=== PATIENT | female | born 1950 | race Caucasian/White ===

== ENCOUNTER 2020-07-02 22:26 | Emergency (ER) | payer MEDICARE, MEDICAID, SELFPAY ==
--- NOTE | ~2020-07-02 | XR_ITS ---
EXAMINATION: XR chest 2V EXAM DATE: 07/02/2020 23:01 INDICATION: Mid chest pain, pressure, palpitations. History of hypertension. TECHNIQUE: Frontal and lateral projections of the chest obtained and reviewed. Comparison is made to prior examination from 06/29/2019. FINDINGS: The lungs are clear. There are no pleural effusions. The cardiomediastinal silhouette is within normal limits. There is no pneumothorax suspected. The bones and soft tissues are unremarkab le. There are cholecystectomy clips. IMPRESSION: No acute cardiopulmonary findings. Reviewed, dictated and finalized at location G. [facility]
[2020-07-02 22:23] VITALS: PULSE 96; RESP 22; TEMP 36.8; O2SAT 97
--- NOTE | 2020-07-02 22:31 | ECG_ITS ---
Measurements Intervals [place] Rate: 91 P: 35 [place]: 144 QRS: 8 QRSD: 104 T: 52 QT: 369 QTc: 456 Interpretive Statements SINUS RHYTHM CONSIDER INFERIOR INFARCT, AGE INDETERMINATE BASELINE ARTIFACT- I, II, AVR, AVF, V1 ABNORMAL ECG Electronically Signed On 07-03-2020 7:03:36 HR CLERK by Rishabh Anthony D.O.
[2020-07-02 22:43] VITALS: PULSE 93
[2020-07-02 22:51] LABS: Basophils Absolute Auto 0.1 K/mm3 (0.0-0.1); Basophils Percent Auto 0.6 % (0.2-1.2); Eosinophils Absolute Auto 0.1 K/mm3 (0-0.3); Eosinophils Percent Auto 1.1 % (0-4.4); Hematocrit 43.2 % (37.0-47.0); Hemoglobin 14.8 g/dL (12.0-15.0); Immature Granulocyte Absolute 0.02 K/mm3 (0.00-0.031); Immature Granulocyte Percent A 0.2 % (0-0.5); Lymphocytes Absolute Auto 2.97 K/mm3 (0.9-3.2); Lymphocytes Percent Auto 35.2 % (18.3-44.2); Mean Corpuscular HGB Conc 34.3 g/dl (32-36); Mean Corpuscular Hemoglobin 29.9 pg (26-34); Mean Corpuscular Volume 87.3 fl (80-100); Mean Platelet Volume 9.4 fl (7.4-10.4); Monocytes Absolute Auto 0.6 K/mm3 (0.1-0.6); Monocytes Percent Auto 7.6 % (2.6-8.5); Neutrophils Absolute Auto 4.7 K/mm3 (1.3-6.7); Neutrophils Percent Auto 55.3 % (45.5-73.1); Platelet Count Result 257 k/mm3 (150-375); Red Blood Count 4.95 M/mm3 (4.2-5.4); White Blood Count 8.4 K/mm3 (4.5-10.0)
--- NOTE | 2020-07-02 23:01 | ED.GENADULT ---
HPI - General Adult General Chief complaint: Chest Pain Stated complaint: ANXIETY/CHEST PRESSURE History of Present Illness HPI narrative: Patient is a 69-year-old female who presents the ER with concerns of elevated blood pressure and potentially chest pain that began this evening. Reports that a insurance person came out today and took her blood pressure and told her it was elevated. She is unsure what the value was. A friend then came down and checked her blood pressure this evening and told her that the blood pressure was elevated and that she should come to the emergency room. At this time patient started to develop some central chest discomfort that she reports feels like a cat is in her chest. She cannot elaborate what that means. It lasted a couple minutes. No radiation. She is having no fevers or chills or sweats. No productive cough. She had not had any additional chest pain during the day or the last couple of weeks. No history of heart disease. Patient did report that she felt some fluttering sensation in the lateral aspect of her chest wall earlier in the day that was separate from what she experienced while having her blood pressure taken this evening. Patient does have history of anxiety and reports this is different. Related Data Home Medications Medication Instructions Recorded Confirmed amitriptyline 75 mg PO HS 06/29/19 06/29/19 aspirin [Aspir-Low] 06/29/19 clonazepam 1 mg PO DAILY 06/29/19 06/29/19 esomeprazole magnesium 20 mg PO DAILY 06/29/19 06/29/19 gabapentin 100 mg PO DAILY 06/29/19 06/29/19 Allergies Allergy/AdvReac Type Severity Reaction Status Date / Time ampicillin Allergy Unknown Verified 09/24/18 11:27 codeine Allergy Unknown Verified 07/05/17 07:07 Review of Systems Review of Systems: All systems reviewed & are unremarkable except as noted in HPI and below Constitutional: Constitutional: Denies chills, Denies fever(s) and Denies weakness ENT: Denies nasal congestion and Denies sore throat Cardiovascular: Cardiovascular: Reports chest pain, Denies rapid heart rate and Denies radiating jaw, neck or arm pain Respiratory: Respiratory: Denies cough, Denies dyspnea and Denies wheezing Gastrointestinal: Gastrointestinal: Denies abdominal pain, Denies nausea and Denies vomiting Musculoskeletal: Musculoskeletal: Denies back pain and Denies muscle cramps [facility] Past Medical History Medical History (Updated 07/03/20 @ 02:18 by Josue Hernandez MD) Anxiety GERD (gastroesophageal reflux disease) Hypertension Surgical History Surgical History (Updated 06/29/19 @ 13:02 by Magali Arboleda) H/O: hysterectomy History of cholecystectomy Social History Social History (Updated 06/29/19 @ 13:02 by Magali Arboleda) Smoking status: Former smoker Alcohol intake: never Substance use type: marijuana Gender identity (if verbalized by the patient): Female Exam Narrative: Exam Narrative: GENERAL: Well-appearing, well-nourished, and in no acute distress. HEAD: Normocephalic, atraumatic. CHEST: Clear to auscultation. No respiratory distress. HEART: Regular rate and rhythm. Normal peripheral pulses. ABDOMEN: Soft, nontender, nondistended. EXTREMITIES: Normal range of motion. No edema. SKIN: Warm, dry, no rash. NEURO: Alert and oriented x3. PSYCH: Normal mood and affect. Course Course Emergency Course: No pain, trop negative x 2, d/c. BP normalized. Vital Signs Vital signs: Vital Signs Temperature 98.3 F 07/02/20 22:23 Pulse Rate 96 07/02/20 22:23 Respiratory Rate 22 H 07/02/20 22:23 Pulse Oximetry 97 07/02/20 22:23 Temperature 98.3 F 07/02/20 22:23 Pulse Rate 95 07/03/20 00:36 Respiratory Rate 20 07/03/20 00:36 Blood Pressure 128/95 H 07/03/20 00:36 Pulse Oximetry 97 07/03/20 00:36 Medical Decision Making Vital Signs Vital Signs: Vital Signs Temperature 98.3 F 07/02/20 22:23 Pulse Rate 96 07/02/20 22:23 Respirato
[2020-07-02 23:03] LABS: Anion Gap 8 mmol/L (8-16); Blood Urea Nitrogen 22 mg/dL (7-17); Calcium 9.3 mg/dL (8.4-10.2); Carbon Dioxide 28 mmol/L (22-30); Chloride 103 mmol/L (98-107); Estimated Glomerular Filt Rate 49; Glucose 129 mg/dL (65-105); Potassium 3.9 mmol/L (3.4-5.0); Sodium 139 mmol/L (137-145)
[2020-07-02 23:05] LABS: INR 0.9; Prothrombin Time 12.6 Seconds (11.1-14.7)
[2020-07-02 23:06] LABS: Partial Thromboplastin Time 26.4 SECONDS (22.3-36.8)
[2020-07-02 23:10] VITALS: BP 139/85; PULSE 93; RESP 17; O2SAT 98
[2020-07-02 23:15] LABS: Troponin I < 0.012 ng/mL (0.000-0.034)
[2020-07-03 00:36] VITALS: BP 128/95; PULSE 95; RESP 20; O2SAT 97
[2020-07-03 02:00] LABS: Troponin I < 0.012 ng/mL (0.000-0.034)
[2020-07-03 02:40] VITALS: BP 130/79; PULSE 81; RESP 18; O2SAT 99
== END 2020-07-03 02:40 | disposition home or self-care (01) ==
PROVIDERS: Emergency Provider Emergency Medicine; PCP Family Medicine
DX: F41.9 Anxiety disorder, unspecified (principal); Z87.891 Personal history of nicotine dependence; K21.9 Gastro-esophageal reflux disease without esophagitis; I10 Essential (primary) hypertension
CPT/HCPCS: 36415; 71046; 80048; 84484; 85025; 85610; 85730; 93005; 99284

== ENCOUNTER 2021-03-11 00:49 | Day surgery (SDC) | payer MEDICARE, MEDICAID, SELFPAY ==
[2021-02-25 12:08] VITALS: BMI 28.7
--- NOTE | 2021-03-11 08:26 | WPDANESEPPF ---
Anes - Initial Pre Proc Eval Procedure: Operation Date: 03/11/21 10:00 Proposed Procedures p Screening Colonoscopy - Arnie Laureano MD Date/Time: 03/11/21 08:26 Surgeon: Arnie Laureano MD Pre Op Diagnosis: neoplasm screening Patient Data Age: 70 Gender: F Height: 1.6 m Weight: 73.5 kg Allergies Allergy/AdvReac Type Severity Reaction Status Date / Time ampicillin Allergy Unknown Nausea and Verified 03/11/21 08:48 Vomiting codeine Allergy Unknown Other Verified 03/11/21 08:48 Home Medications Medication Instructions Recorded Confirmed Type amitriptyline 75 mg PO HS 06/29/19 02/25/21 History clonazepam 1 mg PO DAILY 06/29/19 02/25/21 History esomeprazole magnesium 20 mg PO DAILY 06/29/19 02/25/21 History gabapentin 100 mg PO DAILY 06/29/19 02/25/21 History aspirin 81 mg PO DAILY 02/25/21 02/25/21 History naproxen 500 mg PO PRN 02/25/21 02/25/21 History Patient hx anesthesia problems: none Family hx anesthesia problems: none [facility] Past Medical History Medical History (Updated 03/11/21 @ 08:26 by Carrillo Daugherty MD) Anxiety GERD (gastroesophageal reflux disease) Hypertension Peripheral neuropathy Surgical History Surgical History (Updated 06/29/19 @ 13:02 by Magali Arboleda) H/O: hysterectomy History of cholecystectomy Social History Social History (Updated 06/29/19 @ 13:02 by Magali Arboleda) Smoking packs per day: 1 Smoking cigarettes per day: 20.0 Smoking status: Former smoker Tobacco type: cigarettes Alcohol intake: current Alcohol use details: rare use now; states, she used to be a drinker Substance use: current Substance use type: marijuana Other substance usage details: 2-3 times weekly at bedtime Last use: 02/24/2021 Living arrangements: alone Additional living arrangements comments: lives in shelter community Gender identity (if verbalized by the patient): Female Spiritual care concerns: No Anes - Eval Final PreProcedure Day of Procedure 03/11/21 08:26 Patient weight: overweight Heart: regular rate and rhythm Lungs: clear to auscultation and normal air movement Airway: Mallampati scale class II Neurological: alert and oriented Last oral intake: >/= 8 hours ASA classification: II Emergent: no Anesthetic plan: proceed Anesthesia type and monitoring: general GIVS Informed Consent: The patient's anesthetic plan and its attendant risks and benefits were discussed with the patient/family/POA. Questions were solicited and answers provided to the satisfaction of the patient/family/POA.
[2021-03-11 08:49] VITALS: BP 146/93; PULSE 94; RESP 18; TEMP 36.4; O2SAT 98; BMI 28.0
[2021-03-11] MEDS: LACTATED RINGERS 1,000 ML 150 ML IV CONT (08:56)
--- NOTE | 2021-03-11 09:32 | P.HP_ITS ---
History of Present Illness History of Present Illness Consent: Risks, benefits, and alternatives have been discussed and questions answered. Patient agrees to proceed with procedure. Chief complaint: neoplasm screening Narrative: Margareth Saldivar is a 70 year old female referred for colon cancer screening. Review of Systems Review of Systems: All systems reviewed & are unremarkable except as noted in HPI and below PMFSH Past Medical History Medical History Anxiety GERD (gastroesophageal reflux disease) Hypertension Peripheral neuropathy Surgical History Surgical History H/O: hysterectomy History of cholecystectomy Social History Social History Smoking packs per day: 1 Smoking cigarettes per day: 20.0 Smoking status: Former smoker Tobacco type: cigarettes Alcohol intake: current Alcohol use details: rare use now; states, she used to be a drinker Substance use: current Substance use type: marijuana Other substance usage details: 2-3 times weekly at bedtime Last use: 02/24/2021 Living arrangements: alone Additional living arrangements comments: lives in nursing home community Gender identity (if verbalized by the patient): Female Spiritual care concerns: No Meds Home Medications and Allergies Home Medications Medication Instructions Recorded Confirmed Type amitriptyline 75 mg PO HS 06/29/19 02/25/21 History clonazepam 1 mg PO DAILY 06/29/19 02/25/21 History esomeprazole magnesium 20 mg PO DAILY 06/29/19 02/25/21 History gabapentin 100 mg PO DAILY 06/29/19 02/25/21 History aspirin 81 mg PO DAILY 02/25/21 02/25/21 History naproxen 500 mg PO PRN 02/25/21 02/25/21 History Allergies Allergy/AdvReac Type Severity Reaction Status Date / Time ampicillin Allergy Unknown Nausea and Verified 03/11/21 08:48 Vomiting codeine Allergy Unknown Other Verified 03/11/21 08:48 Vital Signs Vital Signs - 24 hr 03/11/21 08:49 Temperature 36.4 C L Pulse Rate 94 Respiratory Rate 18 Blood Pressure 146/93 H Pulse Oximetry 98 Exam Resp: Auscultation: clear to auscultation bilaterally Cardio: Rate: regular rate Rhythm: regular rhythm GI: GI Palp: Yes Soft to palpation and No Tenderness to palpation present (GI) Assessment and Plan Assessment and plan (1) Colon cancer screening: Code(s): Z12.11 - Encounter for screening for malignant neoplasm of colon Status: Acute Assessment and Plan: Colonoscopy with possible biopsy or polypectomy or cautery or injection of substances.
[2021-03-11 10:09] VITALS: BP 121/84; PULSE 80; RESP 25; O2SAT 97
[2021-03-11 10:19] VITALS: BP 125/82; PULSE 79; RESP 22; O2SAT 94
== END 2021-03-11 10:41 | disposition home or self-care (01) ==
PROVIDERS: PCP Family Medicine; Visit Provider Internal Medicine Gastroenterology
PROC: 0DJD8ZZ Inspection of Lower Intestinal Tract, Via Natural or Artificial Opening Endoscopic (ICD-10-PCS; CPT 45378; principal; 2021-03-11 10:00)
DX: Z12.11 Encounter for screening for malignant neoplasm of colon (principal); K57.30 Diverticulosis of large intestine without perforation or abscess without bleeding; I10 Essential (primary) hypertension; K21.9 Gastro-esophageal reflux disease without esophagitis; G62.9 Polyneuropathy, unspecified; F41.9 Anxiety disorder, unspecified; Z79.82 Long term (current) use of aspirin; Z87.891 Personal history of nicotine dependence; F12.90 Cannabis use, unspecified, uncomplicated
CPT/HCPCS: G0121; J2704; J7120

== ENCOUNTER 2022-02-08 08:10 | Outpatient (CLI) | payer MEDICARE, MEDICAID, SELFPAY ==
--- NOTE | ~2022-02-08 | DEXA_ITS ---
Bone Density Report Name: HUNG OBRIEN Age: 71 Sex: Female Ethnicity: White Date of : 1950 Indication: postmenopausal; screening for osteoporosis; parental hip fracture; hysterectomy; Referring Provider: HOMERO, ELTON Devries Study: Bone densitometry was performed. Exam Date: February 08, 2022 Accession number: [id number] Bone Density: Region BMD T-score Z-score Classification AP Spine(L1, L2) 0.951 -0.3 1.8 Normal Femoral Neck (Left) 0.717 -1.2 0.7 Osteopenia Total Hip (Left) 0.946 0.0 1.7 Normal Femoral Neck (Right) 0.745 -0.9 1.0 Normal Total Hip (Right) 0.966 0.2 1.8 Normal Total Hip Mean 0.956 0.1 1.8 Normal World Health Organization criteria for BMD impression classify patients as: Normal (T-score at or above -1.0), Osteopenia (T-score between -1.0 and -2.5), or Osteoporosis (T-score at or below -2.5). 10-year Fracture Risk(1): Major Osteoporotic Fracture 16% Hip Fracture 6.3% Reported Risk Factors: [place] (), Neck BMD=0.717, BMI=29.1, parental fracture, smoking (1) FRAX(R) Version 3.08. Fracture probability calculated for an untreated patient. Fracture probability may be lower if the patient has received treatment. Clinical Information Provided by Patient: Parent has had a hip fracture Smokes Has the following medical conditions: Hysterectomy Patient maximum height was 63 Menopause Age: 39 Onset of menses at age 12 Number of children 3 Impression: The patient has low bone mass, based on the Left Femoral Neck T-score. The patient has an estimated ten-year risk of hip fracture of 6.3% and an estimated ten-year risk of major fracture of 16%, based on the WHO FRAX algorithm. The patient has risk factors, including: parental hip fracture, smoking. Discussion: BONE DENSITY IS LOW AT ONE OR MORE SKELETAL SITES. THE PATIENT'S BMD AND CLINICAL RISK FACTORS CONTRIBUTE TO THIS PATIENT'S INCREASED RISK OF FRACTURE. This patient's lowest T-score is low at one or more skeletal sites. It meets the World Health Organization's (WHO) criteria for ?low bone mass? (T-score between -1.0 and -2.5). The patient's 10-year risk of hip fracture as calculated by FRAX exceeds the threshold where pharmacological therapy is recommended by the National Osteoporosis Foundation (NOF). However, all treatment decisions require clinical judgment and consideration of individual patient factors, including patient preferences, comorbidities, previous drug use, risk factors not captured in the FRAX model (e.g., frailty, falls, vitamin D deficiency, increased bone turnover, interval significant decline in bone density) and possible under or overestimation of fracture risk by FRAX. The patient should follow a healthful lifestyle (good nutrition with adequate calcium and vitamin D, and appr
== END 2022-02-08 08:11 | disposition home or self-care (01) ==
PROVIDERS: PCP Family Medicine; Visit Provider Family Medicine
DX: N95.9 Unspecified menopausal and perimenopausal disorder (principal); M85.852 Other specified disorders of bone density and structure, left thigh
CPT/HCPCS: 77080